=== PATIENT | male | born 1975 | race Caucasian/White ===

== ENCOUNTER 2022-03-11 01:21 | Emergency (ER) | payer OTHER, SELFPAY ==
[2022-03-11] VITALS (15 sets, daily range): BP systolic 128–177; BP diastolic 73–105; PULSE 54–66; RESP 12–22; TEMP 36.9; O2SAT 92–98; BMI 38.7
--- NOTE | 2022-03-11 01:26 | DI.RAD.S_ITS ---
PROCEDURE: XR CHEST 1V INDICATIONS: chest pain TECHNIQUE: One view of the chest was acquired. COMPARISON: None. FINDINGS: Surgical changes and devices: None. Lungs and pleura: Lungs are clear. No pleural effusions or pneumothorax. Mediastinum: Mediastinal contours appear normal. Heart size is normal. Bones and chest wall: No suspicious bony lesions. Overlying soft tissues appear unremarkable. IMPRESSION: Normal for age, source of current chest pain symptoms is not seen. Dictated by: Jaxon Flor M.D. on 03/11/2022 at 1:54 Approved by: Jaxon Flor M.D. on 03/11/2022 at 1:55
--- NOTE | 2022-03-11 01:35 | PC.NURSE ---
pain is described as a pressure, pt states he had a WI about 6-7 yrs ago at that time it was a cool burning sensation in the epigastric area, he did have stents placed. states this feels different
[2022-03-11 01:42] LABS: Add Manual Diff / Slide Review NO; Basophils Absolute Auto 0 /uL (0-100); Basophils Percent Auto 0.4 % (0-2); Eosinophils Absolute Auto 200 /uL (0-450); Eosinophils Percent Auto 2.3 % (2-4); Hematocrit 42.3 % (41-53); Hemoglobin 14.4 g/dL (13.5-17.5); Lymphocytes Absolute Auto 2600 /uL (1100-4500); Lymphocytes Percent Auto 29.3 % (25-40); Mean Corpuscular HGB Conc 34.1 % (30-36); Mean Corpuscular Hemoglobin 32.3 PG (26-34); Mean Corpuscular Volume 94.6 fL (80-100); Monocytes Absolute Auto 1300 /uL (0-900); Monocytes Percent Auto 14.4 % (3-14); Neutrophils Absolute Auto 4800 /uL (1500-7000); Neutrophils Percent Auto 53.6 % (50-75); Platelet Count 163 X10^3/uL (150-400); Red Blood Cell Count 4.47 X10^6/uL (4.5-5.9); Red Cell Distribution Width 13.9 % (11.6-14.8); White Blood Cell Count 8.9 X10^3/uL (4.5-11.0)
--- NOTE | 2022-03-11 01:45 | ED.CHESTPAIN ---
HPI - Chest Pain General Chief Complaint: Chest Pain Stated Complaint: chest pain/45 min Time Seen by Provider: 03/11/22 01:26 Source: patient Mode of arrival: Ambulatory Limitations: no limitations History of Present Illness HPI narrative: 46-year-old male with a history of coronary artery disease. Has had a heart attack in the past with stent placement. Is on lisinopril and metoprolol and atorvastatin. He also takes a daily aspirin. He is not on clopidogrel. He does not see a rn outpatient surgery on a regular basis. He does have a significant family history of coronary artery disease. He is a smoker. He states that this evening he was lying in bed on his left side playing with his phone when he had a sudden onset of chest discomfort. He is currently asymptomatic. The discomfort was all over his chest. He did have some tingling in his left arm. He states that the symptoms today are different than the symptoms that he had when he had a heart attack in the past. He had no shortness of breath. No palpitations. No lightheadedness. Has had diarrhea for the past couple days. No lower extremity swelling. Related Data Home Medications Medication Instructions Recorded Confirmed OMEGA-3 FATTY ACIDS (FISH OIL) #0 09/27/16 aspirin 325 mg tablet 325 mg PO QDAY #0 09/27/16 atorvastatin 80 mg tablet 80 mg PO HS #0 09/27/16 clopidogrel 75 mg tablet 75 mg PO QDAY #0 09/27/16 lisinopril 10 mg tablet 10 mg PO QDAY #0 09/27/16 metoprolol succinate 25 mg #0 09/27/16 tablet,extended release 24 hr (Toprol XL) multivitamin (Multiple Vitamins) 1 tab PO QDAY #0 09/27/16 vitamin B complex (B 1 tab PO QDAY #0 09/27/16 Complex-Vitamin B12) Previous Rx's Medication Instructions Recorded nicotine 14 mg/24 hr daily 14 mg TOPICAL QDAY #42 patch 09/27/16 transdermal patch Allergies Allergy/AdvReac Type Severity Reaction Status Date / Time bupropion [From WELLBUTRIN] Allergy Severe Unverified 01/22/18 12:39 hydrochlorothiazide AdvReac Severe ABD pain Unverified 01/22/18 12:39 [HYDROCHLOROTHIAZIDE] cramps headache Review of Systems Constitutional Constitutional: Reports system reviewed and no additional complaints, except as documented Cardiovascular Cardiovascular: Reports system reviewed and no additional complaints, except as documented Respiratory Respiratory: Reports system reviewed and no additional complaints, except as documented Gastrointestinal Gastrointestinal: Reports system reviewed and no additional complaints, except as documented Musculoskeletal Musculoskeletal: Reports system reviewed and no additional complaints, except as documented Integumentary/Breasts Skin/Breast: Reports system reviewed and no additional complaints, except as documented Neurologic Neurologic: Reports system reviewed and no additional complaints, except as documented Hematologic/Lymphatic On Anticoagulants: No Patient History Medical History Essential hypertension (09/27/16) History of myocardial infarction (09/27/16) Pure hypercholesterolemia (09/27/16) Surgical History (Updated 02/11/18 @ 06:11 by Conversion Provider) Status post hernia repair Family History (Updated 11/06/16 @ 00:00 by Conversion Provider) Father Heart disease Hypertension Hyperlipidemia Grandfather Hypertension Grandmother Hypertension Hyperlipidemia Grandmother Age: 84 Diabetes mellitus Social History Smoking Status: Current every day smoker Smoking Status: Current every day smoker alcohol intake frequency: a few times a week Substance Use Type: does not use Exam Initial Vital Signs Initial Vital Signs: Vital Signs Temperature 98.5 F 03/11/22 01:30 Pulse Rate 66 03/11/22 01:30 Respiratory Rate 18 03/11/22 01:30 Blood Pressure 177/105 H 03/11/22 01:30 Pulse Oximetry 98 03/11/22 01:30 Const General: cooperative, healthy appearing and comfortable HENSD Head: normal to inspection and normocephalic Resp Effort & Inspection: normal respiratory effort Auscultation: clear to auscultation bilaterally Cardio Rate: regular rate Rhythm: regular rhythm GI Inspection: normal to inspection and non-distended Palpation: soft Skin General: no rashes or lesions noted Neuro General: patient alert, patient awake, patient oriented x3 and moves all extremities Extrem General: No edema Psych Appearance: grossly normal and well kempt Scores HEART Score Heart Score history: Slightly Suspicious Heart Score EKG: Normal Heart Score Age: < 45 years old Heart Score risk factors: > 3 risk factors or hx of atherosclerotic disease Heart Score troponin: < or = to normal limit Heart Score Total: 2 Course Orders Ordered: ED Orders 03/11/22 01:26 XR chest 1V Stat 03/11/22 01:27 EKG-12 Lead Stat 03/11/22 01:30 Complete Blood Count AUTO DIFF Stat Comprehensive Metabolic Panel Stat Lipase Stat Troponin & CK Cardiac Panel Stat 03/11/22 03:20 Troponin I Stat 03/11/22 05:18 Troponin I Stat Vital Signs Vital signs: Vital Signs - 8 hr 03/11/22 01:30 03/11/22 01:45 03/11/22 02:00 Temperature 98.5 F Pulse Rate 66 65 63 Respiratory Rate 18 16 17 Blood Pressure 177/105 H Pulse Oximetry 98 97 95 03/11/22 02:01 03/11/22 02:30 03/11/22 02:31 Temperature Pulse Rate 62 63 64 Respiratory Rate 12 22 19 Blood Pressure 160/75 H 141/73 H Pulse Oximetry 95 95 95 03/11/22 03:00 03/11/22 03:01 03/11/22 03:30 Temperature Pulse Rate 62 62 61 Respiratory Rate 19 20 19 Blood Pressure 137/74 133/80 Pulse Oximetry 95 95 94 03/11/22 04:00 03/11/22 04:30 03/11/22 04:31 Temperature Pulse Rate 59 L 60 61 Respiratory Rate Blood Pressure 147/81 H 141/81 H Pulse Oximetry 93 95 96 03/11/22 05:00 03/11/22 05:01 03/11/22 05:30 Temperature Pulse Rate 54 L 54 L 64 Respiratory Rate Blood Pressure 128/75 140/87 Pulse Oximetry 92 94 96 MDM - Chest Pain Lab Data Result diagrams: 03/11/22 01:30 03/11/22 01:30 Labs: Lab Results 03/11/22 03/11/22 03/11/22 Range/Units 01:30 01:30 03:20 WBC 8.9 (4.5-11.0) X10^3/uL RBC 4.47 L (4.5-5.9) X10^6/uL Hgb 14.4 (13.5-17.5) g/dL Hct 42.3 (41-53) % MCV 94.6 (80-100) fL MCH 32.3 (26-34) PG MCHC 34.1 (30-36) % RDW 13.9 (11.6-14.8) % Plt Count 163 (150-400) X10^3/uL Neut % (Auto) 53.6 (50-75) % Lymph % (Auto) 29.3 (25-40) % [place] % (Auto) 14.4 H (3-14) % Eos % (Auto) 2.3 (2-4) % Baso % (Auto) 0.4 (0-2) % Neut # (Auto) 4800 (6401-1682) /uL Lymph # (Auto) 2600 (4083-5949) /uL [place] # (Auto) 1300 H (0-900) /uL Eos # (Auto) 200 (0-450) /uL Baso # (Auto) 0 (0-100) /uL Sodium 141 (137-145) mmol/L Potassium 3.5 (3.4-5.1) mmol/L Chloride 108 H (98-107) mmol/L Carbon Dioxide 27 (22-32) mmol/L BUN 20 (9-20) mg/dL Creatinine 0.92 (0.66-1.25) mg/dL Estimated GFR > 60 (>60) mL/min BUN/Creatinine Ratio 21.7 (6-22) Glucose 125 H (70-100) mg/dL Calcium 8.1 L (8.4-10.2) mg/dL Total Bilirubin 0.4 (0.2-1.3) mg/dL AST 26 (17-59) IU/L ALT 24 (<50) IU/L Alkaline Phosphatase 63 (38-126) U/L Total Creatine Kinase 88 (55-170) U/L CK-MB (CK-2) TNP CK-MB (CK-2) Rel Index TNP Troponin I < 0.012 0.022 (0.01-0.034) ng/mL Total Protein 7.2 (6.3-8.2) g/dL Albumin 3.9 (3.5-5.0) g/dL Globulin 3.3 (1.7-4.1) g/dL Albumin/Globulin Ratio 1.2 (1.0-2.8) Lipase 100 (23-300) U/L // Range/Units 05:18 WBC (4.5-11.0) X10^3/uL RBC (4.5-5.9) X10^6/uL Hgb (13.5-17.5) g/dL Hct (41-53) % MCV (80-100) fL MCH (26-34) PG MCHC (30-36) % RDW (11.6-14.8) % Plt Count (150-400) X10^3/uL Neut % (Auto) (50-75) % Lymph % (Auto) (25-40) % [place] % (Auto) (3-14) % Eos % (Auto) (2-4) % Baso % (Auto) (0-2) % Neut # (Auto) (5141-1855) /uL Lymph # (Auto) (0792-7268) /uL [place] # (Auto) (0-900) /uL Eos # (Auto) (0-450) /uL Baso # (Auto) (0-100) /uL Sodium (137-145) mmol/L Potassium (3.4-5.1) mmol/L Chloride (98-107) mmol/L Carbon Dioxide (22-32) mmol/L BUN (9-20) mg/dL Creatinine (0.66-1.25) mg/dL Estimated GFR (>60) mL/min BUN/Creatinine Ratio (6-22) Glucose (70-100) mg/dL Calcium (8.4-10.2) mg/dL Total Bilirubin (0.2-1.3) mg/dL AST (17-59) IU/L ALT (<50) IU/L Alkaline Phosphatase (38-126) U/L Total Creatine Kinase (55-170) U/L CK-MB (CK-2) CK-MB (CK-2) Rel Index Troponin I 0.027 (0.01-0.034) ng/mL Total Protein (6.3-8.2) g/dL Albumin (3.5-5.0) g/dL Globulin (1.7-4.1) g/dL Albumin/Globulin Ratio (1.0-2.8) Lipase (23-300) U/L Imaging Data Chest x-ray: Radiologist's Impression: [address] [address] XRay Report Signed Patient: Efra Oates MR#: [id number] : 1975 Acct:[id number] Age/Sex: 46 / M Date of Service: 03/11/22 Loc: ED Accession Number: [id number] ?? Procedure: XR chest 1V Ordering Provider: Efra Wheeler D.O. PROCEDURE:? XR CHEST 1V ? INDICATIONS:? chest pain ? TECHNIQUE:? One view of the chest was acquired.? ? COMPARISON:? None. ? FINDINGS:? ? Surgical changes and devices:? None.? ? Lungs and pleura:? Lungs are clear.? No pleural effusions or pneumothorax.? ? Mediastinum:? Mediastinal contours appear normal.? Heart size is normal.? ? Bones and chest wall:? No suspicious bony lesions.? Overlying soft tissues appear unremarkable.? ? IMPRESSION:? Normal for age, source of current chest pain symptoms is not seen. ? ? Dictated by: Jaxon Flor M.D. on 03/11/2022 at 1:54 ? ? Approved by: Jaxon Flor M.D. on 03/11/2022 at 1:55?? ECG Data Attestation: I personally reviewed and interpreted this ECG as follows: Interpretation: Sinus rhythm Ventricular rate is 61 Normal axis normal QRS Normal QTC No ST T wave changes MDM Narrative Medical decision making narrative: Patient had taken aspirin prior to arrival. He has been asymptomatic since arrival here in the ER. Has a unremarkable EKG with no ST changes. Has a low risk heart score. We did discuss admission to the hospital for further risk stratification however the patient opted for serial troponins in the ER. Patient has had 3 negative troponins. Patient does require further risk stratification testing however you contact his primary provider for follow-up. He was given strict return precautions. He expressed understanding and agreement. Discharge Plan Departure Patient Disposition: Home Clinical Impression: Atypical chest pain Instructions: DI for Atypical Chest Pain Activity Restrictions/Additional Instructions: It is important that you contact your primary doctor for further workup to include a stress test. Continue to take all of your medications as directed. Return to the emergency department for any new or worsening symptoms. Prescriptions: No Action atorvastatin 80 MG tablet 80 mg PO HS Qty: 0 0RF lisinopril 10 MG tablet 10 mg PO QDAY Qty: 0 0RF clopidogrel 75 MG tablet 75 mg PO QDAY Qty: 0 0RF metoprolol succinate [Toprol XL] 25 MG tablet extended release 24 hr Qty: 0 0RF multivitamin [Multiple Vitamins] 1 EACH tablet 1 tab PO QDAY Qty: 0 0RF aspirin 325 MG tablet 325 mg PO QDAY Qty: 0 0RF vitamin B complex [B Complex-Vitamin B12] 1 EACH tablet 1 tab PO QDAY Qty: 0 0RF OMEGA-3 FATTY ACIDS (FISH OIL) Qty: 0 0RF nicotine 14 MG patch 24 hour 14 mg Topical QDAY Qty: 42 0RF Referrals: Armani Lewis MD [Primary Care Provider] -
[2022-03-11 01:51] LABS: Alanine Aminotransferase 24 IU/L (<50); Albumin 3.9 g/dL (3.5-5.0); Albumin Globulin Ratio 1.2 (1.0-2.8); Alkaline Phosphatase 63 U/L (38-126); Aspartate Aminotransferase 26 IU/L (17-59); BUN Creatinine Ratio 21.7 (6-22); Bilirubin Total 0.4 mg/dL (0.2-1.3); Blood Urea Nitrogen 20 mg/dL (9-20); Calcium 8.1 mg/dL (8.4-10.2); Carbon Dioxide 27 mmol/L (22-32); Chloride 108 mmol/L (98-107); Creatine Kinase 88 U/L (55-170); Estimated Glomerular Filt Rate > 60 mL/min (>60); Globulin 3.3 g/dL (1.7-4.1); Glucose 125 mg/dL (70-100); HEMOLYSIS 41 (0-50); Lipase 100 U/L (23-300); Potassium 3.5 mmol/L (3.4-5.1); Sodium 141 mmol/L (137-145); Total Protein 7.2 g/dL (6.3-8.2)
[2022-03-11 02:02] LABS: Troponin I < 0.012 ng/mL (0.01-0.034)
[2022-03-11 03:51] LABS: Troponin I 0.022 ng/mL (0.01-0.034)
[2022-03-11 05:46] LABS: Troponin I 0.027 ng/mL (0.01-0.034)
== END 2022-03-11 06:02 | disposition home or self-care (01) ==
PROVIDERS: Emergency Provider Emergency Medicine; PCP Family Medicine
DX: R07.89 Other chest pain (principal); I25.10 Atherosclerotic heart disease of native coronary artery without angina pectoris; Z95.5 Presence of coronary angioplasty implant and graft; I25.2 Old myocardial infarction
CPT/HCPCS: 36415; 71045; 80053; 82550; 83690; 84484; 85025; 93005; 99284

== ENCOUNTER 2022-03-18 23:32 | Emergency (ER) | payer OTHER, SELFPAY ==
[2022-03-18 23:32] VITALS: BP 163/105; PULSE 79; RESP 19; TEMP 36.8; O2SAT 95; BMI 37.6
--- NOTE | 2022-03-18 23:36 | DI.RAD.S_ITS ---
PROCEDURE: XR CHEST 1V INDICATIONS: chest pain TECHNIQUE: One view of the chest was acquired. COMPARISON: [facility], CR, XR CHEST 1V, 03/11/2022, 1:31. FINDINGS: Surgical changes and devices: None. Lungs and pleura: Lungs are clear. No pleural effusions or pneumothorax. Mediastinum: Mediastinal contours appear normal. Heart size is normal. Bones and chest wall: No suspicious bony lesions. Overlying soft tissues appear unremarkable. IMPRESSION: 1. No acute cardiopulmonary disease. Dictated by: Jonathan Gutiérrez M.D. on 03/19/2022 at 0:42 Approved by: Jonathan Gutiérrez M.D. on 03/19/2022 at 0:43
--- NOTE | 2022-03-18 23:46 | ED_ITS ---
HPI - Chest Pain <Jann Dale - Last Filed: 03/20/22 00:22> General Chief Complaint: Chest Pain Stated Complaint: Chest Pain Time Seen by Provider: 03/18/22 23:35 Source: patient and EMS Mode of arrival: EMS History of Present Illness HPI narrative: 46-year-old male daily smoker with history of coronary artery disease, hypertension hyperlipidemia, prior [place] at age 38 with 3 stents placed at [facility] presents with an episode of retrosternal chest pain that happened while at rest 1-2 hours prior to his arrival. He had some radiation across his chest. His symptoms have been present for 10-15 minutes and were absent of any obvious provocation or palliation. EMS was activated and his symptoms resolved prior to their arrival. During transport he had another brief episode that lasted a few minutes. He had some nausea but denies vomiting. He states that he had a similar episode with a normal workup about 1 month ago. He states his last provocative testing was quite sometime ago. He denies any change in medications or diet. He denies any recent travel or injury. He has had no fever or chills. [facility] He took full-dose aspirin prior to his arrival Related Data Home Medications Medication Instructions Recorded Confirmed OMEGA-3 FATTY ACIDS (FISH OIL) #0 09/27/16 aspirin 325 mg tablet 325 mg PO QDAY #0 09/27/16 atorvastatin 80 mg tablet 80 mg PO HS #0 09/27/16 clopidogrel 75 mg tablet 75 mg PO QDAY #0 09/27/16 lisinopril 10 mg tablet 10 mg PO QDAY #0 09/27/16 metoprolol succinate 25 mg #0 09/27/16 tablet,extended release 24 hr (Toprol XL) multivitamin (Multiple Vitamins) 1 tab PO QDAY #0 09/27/16 vitamin B complex (B 1 tab PO QDAY #0 09/27/16 Complex-Vitamin B12) Previous Rx's Medication Instructions Recorded nicotine 14 mg/24 hr daily 14 mg TOPICAL QDAY #42 patch 09/27/16 transdermal patch Allergies Allergy/AdvReac Type Severity Reaction Status Date / Time bupropion [From WELLBUTRIN] Allergy Severe Hypertensio Verified 03/18/22 23:41 n hydrochlorothiazide AdvReac Severe ABD pain Verified 03/18/22 23:41 [HYDROCHLOROTHIAZIDE] cramps headache Review of Systems <Jann Dale DO - Last Filed: 03/20/22 00:22> Review of Systems Narrative: GENERAL: Denies chills, fatigue, malaise, fever, sweats. HEENT: Denies sinus pain, ear pain, sore throat, difficulty swallowing, dizziness. RESPIRATORY: Denies dyspnea, cough, wheezing, hemoptysis, sputum. CARDIOVASCULAR: See HPI GASTROINTESTINAL: Denies nausea, vomiting, abdominal pain, diarrhea, constipation, melena. : Denies dysuria, frequency, incontinence, hematuria, urinary retention. MUSCULOSKELETAL: denies weakness, joint pain, or bony pain SKIN: Denies rash, skin lesions, or other NEUROLOGIC: Denies weakness, headache, numbness, change in speech, confusion, seizures, incoordination. PSYCHIATRIC: No concerning psychosocial issues. 12 point review of systems is negative except for those stated above Patient History <Jann Dale DO - Last Filed: 03/20/22 00:22> Medical History Essential hypertension (09/27/16) History of myocardial infarction (09/27/16) Pure hypercholesterolemia (09/27/16) Surgical History Status post hernia repair Family History Father Heart disease Hypertension Hyperlipidemia Grandfather Hypertension Grandmother Hypertension Hyperlipidemia Grandmother Age: 84 Diabetes mellitus Social History Smoking Status: Current every day smoker Smoking Status: Current every day smoker alcohol intake frequency: a few times a week Substance Use Type: does not use Exam <Jann Dale DO - Last Filed: 03/20/22 00:22> Narrative Exam Narrative: GENERAL: [46] year old patient appears stated age. Well-developed patient, in mild distress. HEAD: Atraumatic. Normocephalic. EYES: Pupils equal round and reactive. Extraocular motions intact. No scleral icterus. No injection or drainage. ENT: Nose without bleeding, purulent drainage. Throat without erythema, tonsillar hypertrophy or exudate. Airway patent. NECK: Trachea midline. Non tender CARDIOVASCULAR: Regular rate and rhythm without murmurs, gallops, or rubs. RESPIRATORY: Clear to auscultation. Breath sounds equal bilaterally. No wheezes, rales, or rhonchi. GASTROINTESTINAL: Abdomen soft, non-tender, nondistended. EXTREMITIES: No edema or joint tenderness. BACK: Nontender without deformity or crepitance. No flank tenderness. NEURO: AOx3. SKIN: No rash or erythema of visible areas Initial Vital Signs Initial Vital Signs: Vital Signs Temperature 98.3 F 03/18/22 23:32 Pulse Rate 79 03/18/22 23:32 Respiratory Rate 19 03/18/22 23:32 Blood Pressure 163/105 H 03/18/22 23:32 Pulse Oximetry 95 03/18/22 23:32 <Marya Solis DO - Last Filed: 03/19/22 12:59> Initial Vital Signs Initial Vital Signs: Vital Signs Temperature 98.3 F 03/18/22 23:32 Pulse Rate 79 03/18/22 23:32 Respiratory Rate 19 03/18/22 23:32 Blood Pressure 163/105 H 03/18/22 23:32 Pulse Oximetry 95 03/18/22 23:32 Course <Jann Dale DO - Last Filed: 03/20/22 00:22> Orders Ordered: Discontinued Medications Aspirin (Aspirin 81 Mg Chew Tab) 324 mg PO NOW ONE Stop: 03/18/22 23:36 Last Admin: 03/18/22 23:45 Dose: Not Given Documented by: JEANNINE Atorvastatin Calcium (Atorvastatin 20 Mg Tablet) 80 mg PO NOW ONE Stop: 03/19/22 04:18 Last Admin: 03/19/22 04:31 Dose: 80 mg Documented by: AMANDA Heparin Sodium (Porcine) (Heparin 5,000 Unit/Ml Vial) 5,000 unit IV NOW ONE Stop: 03/19/22 03:19 Last Admin: 03/19/22 03:52 Dose: 5,000 unit Documented by: AMANDA Sodium Chloride (Normal Saline 0.9%) 1,000 mls @ 150 mls/hr IV CONT MARCOS Last Infusion: 03/19/22 04:10 Dose: 0 mls/hr Documented by: Infusion: 03/19/22 04:02 Dose: 0 mls/hr Documented by: Admin: 03/19/22 01:01 Dose: 150 mls/hr Documented by: JEANNINE Heparin Sodium/Dextrose (Heparin Drip) 25,000 unit in 500 mls @ 20 mls/hr IV CONT MARCOS; Protocol Last Titration: 03/19/22 13:38 Dose: 0 units/hr, 0 mls/hr Documented by: Admin: 03/19/22 03:52 Dose: 1,000 units/hr, 20 mls/hr Documented by: AMANDA Metoprolol Succinate (Metoprolol Er 50 Mg Tablet) 50 mg PO NOW ONE Stop: 03/19/22 04:18 Last Admin: 03/19/22 04:31 Dose: 50 mg Documented by: AMANDA Vital Signs Vital signs: Vital Signs - 8 hr 03/19/22 05:00 03/19/22 05:01 03/19/22 05:30 Pulse Rate 65 63 59 L Respiratory Rate 15 16 13 Blood Pressure 120/73 129/76 Pulse Oximetry 96 97 97 03/19/22 06:00 03/19/22 06:30 03/19/22 07:00 Pulse Rate 55 L 55 L 61 Respiratory Rate 14 15 16 Blood Pressure 136/66 132/75 120/77 Pulse Oximetry 96 97 96 03/19/22 09:30 03/19/22 10:10 Pulse Rate 58 L 55 L Respiratory Rate 14 15 Blood Pressure 129/72 119/69 Pulse Oximetry 94 95 <Marya Solis, - Last Filed: 03/19/22 12:59> Orders Ordered: Discontinued Medications Aspirin (Aspirin 81 Mg Chew Tab) 324 mg PO NOW ONE Stop: 03/18/22 23:36 Last Admin: 03/18/22 23:45 Dose: Not Given Documented by: JEANNINE Atorvastatin Calcium (Atorvastatin 20 Mg Tablet) 80 mg PO NOW ONE Stop: 03/19/22 04:18 Last Admin: 03/19/22 04:31 Dose: 80 mg Documented by: AMANDA Heparin Sodium (Porcine) (Heparin 5,000 Unit/Ml Vial) 5,000 unit IV NOW ONE Stop: 03/19/22 03:19 Last Admin: 03/19/22 03:52 Dose: 5,000 unit Documented by: AMANDA Sodium Chloride (Normal Saline 0.9%) 1,000 mls @ 150 mls/hr IV CONT MARCOS Last Infusion: 03/19/22 04:10 Dose: 0 mls/hr Documented by: Infusion: 03/19/22 04:02 Dose: 0 mls/hr Documented by: Admin: 03/19/22 01:01 Dose: 150 mls/hr Documented by: JEANNINE Heparin Sodium/Dextrose (Heparin Drip) 25,000 unit in 500 mls @ 20 mls/hr IV CONT MARCOS; Protocol Last Titration: 03/19/22 13:38 Dose: 0 units/hr, 0 mls/hr Documented by: Admin: 03/19/22 03:52 Dose: 1,000 units/hr, 20 mls/hr Documented by: AMANDA Metoprolol Succinate (Metoprolol Er 50 Mg Tablet) 50 mg PO NOW ONE Stop: 03/19/22 04:18 Last Admin: 03/19/22 04:31 Dose: 50 mg Documented by: AMANDA Consultations Consultation #1: Dr. Campuzano, cardiology accepts for catheterization but asked for hospitalist to be the admitting service. Agrees with plan for transfer and current treatment. Consultation #2: Dr. Frausto, hospitalist accepts for transfer. Discussed no acute ST changes. Chest pain-free, troponin peaked at 0.399 it is trending down words. Had aspirin with EMS, heparin drip, statin beta-helga, no nitro drip as chest pain free. Time: 12:13 Vital Signs Vital signs: Vital Signs - 8 hr 03/19/22 05:00 03/19/22 05:01 03/19/22 05:30 Pulse Rate 65 63 59 L Respiratory Rate 15 16 13 Blood Pressure 120/73 129/76 Pulse Oximetry 96 97 97 03/19/22 06:00 03/19/22 06:30 03/19/22 07:00 Pulse Rate 55 L 55 L 61 Respiratory Rate 14 15 16 Blood Pressure 136/66 132/75 120/77 Pulse Oximetry 96 97 96 03/19/22 09:30 03/19/22 10:10 Pulse Rate 58 L 55 L Respiratory Rate 14 15 Blood Pressure 129/72 119/69 Pulse Oximetry 94 95 MDM - Chest Pain <Jann Dale DO - Last Filed: 06/07/22 00:22> Lab Data Result diagrams: 03/18/22 23:37 03/18/22 23:37 Labs: Lab Results 03/18/22 03/18/22 03/18/22 Range/Units 23:37 23:37 23:37 WBC 9.2 (4.5-11.0) X10^3/uL RBC 4.92 (4.5-5.9) X10^6/uL Hgb 16.0 (13.5-17.5) g/dL Hct 45.7 (41-53) % MCV 92.9 (80-100) fL MCH 32.5 (26-34) PG MCHC 35.0 (30-36) % RDW 13.8 (11.6-14.8) % Plt Count 187 (150-400) X10^3/uL Neut % (Auto) 63.3 (50-75) % Lymph % (Auto) 25.8 (25-40) % [place] % (Auto) 7.6 (3-14) % Eos % (Auto) 2.7 (2-4) % Baso % (Auto) 0.6 (0-2) % Neut # (Auto) 5800 (5046-2905) /uL Lymph # (Auto) 2400 (6446-4064) /uL [place] # (Auto) 700 (0-900) /uL Eos # (Auto) 200 (0-450) /uL Baso # (Auto) 100 (0-100) /uL APTT (26.4-36.2) SECONDS D-Dimer < 200 (<230) ng/mL Sodium (137-145) mmol/L Potassium (3.4-5.1) mmol/L Chloride (98-107) mmol/L Carbon Dioxide (22-32) mmol/L BUN (9-20) mg/dL Creatinine (0.66-1.25) mg/dL Estimated GFR (>60) mL/min BUN/Creatinine Ratio (6-22) Glucose (70-100) mg/dL Calcium (8.4-10.2) mg/dL Total Bilirubin (0.2-1.3) mg/dL AST (17-59) IU/L ALT (<50) IU/L Alkaline Phosphatase (38-126) U/L Total Creatine Kinase (55-170) U/L CK-MB (CK-2) (<2.37) ng/mL CK-MB (CK-2) Rel Index (1.5-5.0) % Troponin I (0.01-0.034) ng/mL NT-Pro-B Natriuret Pep 24 (<125) pg/mL Total Protein (6.3-8.2) g/dL Albumin (3.5-5.0) g/dL Globulin (1.7-4.1) g/dL Albumin/Globulin Ratio (1.0-2.8) Lipase (23-300) U/L SARS-CoV-2 (PCR) (Negative) 03/18/22 03/19/22 03/19/22 Range/Units 23:37 02:35 09:23 WBC (4.5-11.0) X10^3/uL RBC (4.5-5.9) X10^6/uL Hgb (13.5-17.5) g/dL Hct (41-53) % MCV (80-100) fL MCH (26-34) PG MCHC (30-36) % RDW (11.6-14.8) % Plt Count (150-400) X10^3/uL Neut % (Auto) (50-75) % Lymph % (Auto) (25-40) % [place] % (Auto) (3-14) % Eos % (Auto) (2-4) % Baso % (Auto) (0-2) % Neut # (Auto) (6373-5100) /uL Lymph # (Auto) (4366-3819) /uL [place] # (Auto) (0-900) /uL Eos # (Auto) (0-450) /uL Baso # (Auto) (0-100) /uL APTT 70 H (26.4-36.2) SECONDS D-Dimer (<230) ng/mL Sodium 138 (137-145) mmol/L Potassium 4.2 (3.4-5.1) mmol/L Chloride 104 (98-107) mmol/L Carbon Dioxide 26 (22-32) mmol/L BUN 20 (9-20) mg/dL Creatinine 1.06 (0.66-1.25) mg/dL Estimated GFR > 60 (>60) mL/min BUN/Creatinine Ratio 18.9 (6-22) Glucose 172 H (70-100) mg/dL Calcium 9.1 (8.4-10.2) mg/dL Total Bilirubin 0.3 (0.2-1.3) mg/dL AST 26 (17-59) IU/L ALT 27 (<50) IU/L Alkaline Phosphatase 77 (38-126) U/L Total Creatine Kinase 113 100 (55-170) U/L CK-MB (CK-2) 1.27 TNP (<2.37) ng/mL CK-MB (CK-2) Rel Index 1.1 L TNP (1.5-5.0) % Troponin I 0.044 H 0.399 H* (0.01-0.034) ng/mL NT-Pro-B Natriuret Pep (<125) pg/mL Total Protein 7.4 (6.3-8.2) g/dL Albumin 4.3 (3.5-5.0) g/dL Globulin 3.1 (1.7-4.1) g/dL Albumin/Globulin Ratio 1.4 (1.0-2.8) Lipase 121 (23-300) U/L SARS-CoV-2 (PCR) (Negative) 03/19/22 03/19/22 Range/Units 11:07 11:22 WBC (4.5-11.0) X10^3/uL RBC (4.5-5.9) X10^6/uL Hgb (13.5-17.5) g/dL Hct (41-53) % MCV (80-100) fL MCH (26-34) PG MCHC (30-36) % RDW (11.6-14.8) % Plt Count (150-400) X10^3/uL Neut % (Auto) (50-75) % Lymph % (Auto) (25-40) % [place] % (Auto) (3-14) % Eos % (Auto) (2-4) % Baso % (Auto) (0-2) % Neut # (Auto) (1540-0943) /uL Lymph # (Auto) (3326-4271) /uL [place] # (Auto) (0-900) /uL Eos # (Auto) (0-450) /uL Baso # (Auto) (0-100) /uL APTT (26.4-36.2) SECONDS D-Dimer (<230) ng/mL Sodium (137-145) mmol/L Potassium (3.4-5.1) mmol/L Chloride (98-107) mmol/L Carbon Dioxide (22-32) mmol/L BUN (9-20) mg/dL Creatinine (0.66-1.25) mg/dL Estimated GFR (>60) mL/min BUN/Creatinine Ratio (6-22) Glucose (70-100) mg/dL Calcium (8.4-10.2) mg/dL Total Bilirubin (0.2-1.3) mg/dL AST (17-59) IU/L ALT (<50) IU/L Alkaline Phosphatase (38-126) U/L Total Creatine Kinase (55-170) U/L CK-MB (CK-2) (<2.37) ng/mL CK-MB (CK-2) Rel Index (1.5-5.0) % Troponin I 0.381 H* (0.01-0.034) ng/mL NT-Pro-B Natriuret Pep (<125) pg/mL Total Protein (6.3-8.2) g/dL Albumin (3.5-5.0) g/dL Globulin (1.7-4.1) g/dL Albumin/Globulin Ratio (1.0-2.8) Lipase (23-300) U/L SARS-CoV-2 (PCR) Negative (Negative) ECG Data Interpretation: EKG is normal sinus rhythm rate [77 ] and free of any signs of ischemia or ectopy. No ST segmental elevation or depression. No T wave inversions EKG 2. No significant change 0521 - calls wait list at [facility] and [facility]. [facility] requests call back after discharges. , [facility] have no beds. [facility] <Marya Solis DO - Last Filed: 03/19/22 12:59> Lab Data Labs: Lab Results 03/18/22 03/18/22 03/18/22 Range/Units 23:37 23:37 23:37 WBC 9.2 (4.5-11.0) X10^3/uL RBC 4.92 (4.5-5.9) X10^6/uL Hgb 16.0 (13.5-17.5) g/dL Hct 45.7 (41-53) % MCV 92.9 (80-100) fL MCH 32.5 (26-34) PG MCHC 35.0 (30-36) % RDW 13.8 (11.6-14.8) % Plt Count 187 (150-400) X10^3/uL Neut % (Auto) 63.3 (50-75) % Lymph % (Auto) 25.8 (25-40) % [place] % (Auto) 7.6 (3-14) % Eos % (Auto) 2.7 (2-4) % Baso % (Auto) 0.6 (0-2) % Neut # (Auto) 5800 (2162-1912) /uL Lymph # (Auto) 2400 (1212-9009) /uL [place] # (Auto) 700 (0-900) /uL Eos # (Auto) 200 (0-450) /uL Baso # (Auto) 100 (0-100) /uL APTT (26.4-36.2) SECONDS D-Dimer < 200 (<230) ng/mL Sodium (137-145) mmol/L Potassium (3.4-5.1) mmol/L Chloride (98-107) mmol/L Carbon Dioxide (22-32) mmol/L BUN (9-20) mg/dL Creatinine (0.66-1.25) mg/dL Estimated GFR (>60) mL/min BUN/Creatinine Ratio (6-22) Glucose (70-100) mg/dL Calcium (8.4-10.2) mg/dL Total Bilirubin (0.2-1.3) mg/dL AST (17-59) IU/L ALT (<50) IU/L Alkaline Phosphatase (38-126) U/L Total Creatine Kinase (55-170) U/L CK-MB (CK-2) (<2.37) ng/mL CK-MB (CK-2) Rel Index (1.5-5.0) % Troponin I (0.01-0.034) ng/mL NT-Pro-B Natriuret Pep 24 (<125) pg/mL Total Protein (6.3-8.2) g/dL Albumin (3.5-5.0) g/dL Globulin (1.7-4.1) g/dL Albumin/Globulin Ratio (1.0-2.8) Lipase (23-300) U/L SARS-CoV-2 (PCR) (Negative) 03/18/22 03/19/22 03/19/22 Range/Units 23:37 02:35 09:23 WBC (4.5-11.0) X10^3/uL RBC (4.5-5.9) X10^6/uL Hgb (13.5-17.5) g/dL Hct (41-53) % MCV (80-100) fL MCH (26-34) PG MCHC (30-36) % RDW (11.6-14.8) % Plt Count (150-400) X10^3/uL Neut % (Auto) (50-75) % Lymph % (Auto) (25-40) % [place] % (Auto) (3-14) % Eos % (Auto) (2-4) % Baso % (Auto) (0-2) % Neut # (Auto) (7234-7367) /uL Lymph # (Auto) (4324-7348) /uL [place] # (Auto) (0-900) /uL Eos # (Auto) (0-450) /uL Baso # (Auto) (0-100) /uL APTT 70 H (26.4-36.2) SECONDS D-Dimer (<230) ng/mL Sodium 138 (137-145) mmol/L Potassium 4.2 (3.4-5.1) mmol/L Chloride 104 (98-107) mmol/L Carbon Dioxide 26 (22-32) mmol/L BUN 20 (9-20) mg/dL Creatinine 1.06 (0.66-1.25) mg/dL Estimated GFR > 60 (>60) mL/min BUN/Creatinine Ratio 18.9 (6-22) Glucose 172 H (70-100) mg/dL Calcium 9.1 (8.4-10.2) mg/dL Total Bilirubin 0.3 (0.2-1.3) mg/dL AST 26 (17-59) IU/L ALT 27 (<50) IU/L Alkaline Phosphatase 77 (38-126) U/L Total Creatine Kinase 113 100 (55-170) U/L CK-MB (CK-2) 1.27 TNP (<2.37) ng/mL CK-MB (CK-2) Rel Index 1.1 L TNP (1.5-5.0) % Troponin I 0.044 H 0.399 H* (0.01-0.034) ng/mL NT-Pro-B Natriuret Pep (<125) pg/mL Total Protein 7.4 (6.3-8.2) g/dL Albumin 4.3 (3.5-5.0) g/dL Globulin 3.1 (1.7-4.1) g/dL Albumin/Globulin Ratio 1.4 (1.0-2.8) Lipase 121 (23-300) U/L SARS-CoV-2 (PCR) (Negative) 03/19/22 03/19/22 Range/Units 11:07 11:22 WBC (4.5-11.0) X10^3/uL RBC (4.5-5.9) X10^6/uL Hgb (13.5-17.5) g/dL Hct (41-53) % MCV (80-100) fL MCH (26-34) PG MCHC (30-36) % RDW (11.6-14.8) % Plt Count (150-400) X10^3/uL Neut % (Auto) (50-75) % Lymph % (Auto) (25-40) % [place] % (Auto) (3-14) % Eos % (Auto) (2-4) % Baso % (Auto) (0-2) % Neut # (Auto) (0596-5781) /uL Lymph # (Auto) (2977-0963) /uL [place] # (Auto) (0-900) /uL Eos # (Auto) (0-450) /uL Baso # (Auto) (0-100) /uL APTT (26.4-36.2) SECONDS D-Dimer (<230) ng/mL Sodium (137-145) mmol/L Potassium (3.4-5.1) mmol/L Chloride (98-107) mmol/L Carbon Dioxide (22-32) mmol/L BUN (9-20) mg/dL Creatinine (0.66-1.25) mg/dL Estimated GFR (>60) mL/min BUN/Creatinine Ratio (6-22) Glucose (70-100) mg/dL Calcium (8.4-10.2) mg/dL Total Bilirubin (0.2-1.3) mg/dL AST (17-59) IU/L ALT (<50) IU/L Alkaline Phosphatase (38-126) U/L Total Creatine Kinase (55-170) U/L CK-MB (CK-2) (<2.37) ng/mL CK-MB (CK-2) Rel Index (1.5-5.0) % Troponin I 0.381 H* (0.01-0.034) ng/mL NT-Pro-B Natriuret Pep (<125) pg/mL Total Protein (6.3-8.2) g/dL Albumin (3.5-5.0) g/dL Globulin (1.7-4.1) g/dL Albumin/Globulin Ratio (1.0-2.8) Lipase (23-300) U/L SARS-CoV-2 (PCR) Negative (Negative) Imaging Data Chest x-ray: Radiologist's Impression: Efra Oates??46??M??1975 ? Allergy/Adv: bupropion, hydrochlorothiazide (More??) Close Chest X-Ray (Signed) Gutiérrez,Jonathan - 03/18/22 Chest X-Ray (Signed) Jaxon Flor - 03/11/22 Launch?[address] [address] XRay Report Signed Patient: Efra Oates MR#: [id number] : 1975 Acct:[id number] Age/Sex: 46 / M Date of Service: 03/18/22 Loc: ED Accession Number: [id number] ?? Procedure: XR chest 1V Ordering Provider: Jann Dale D.O. PROCEDURE:? XR CHEST 1V ? INDICATIONS:? chest pain ? TECHNIQUE:? One view of the chest was acquired.? ? COMPARISON:? [facility], CR, XR CHEST 1V, 03/11/2022, 1:31. ? FINDINGS:? ? Surgical changes and devices:? None.? ? Lungs and pleura:? Lungs are clear.? No pleural effusions or pneumothorax.? ? Mediastinum:? Mediastinal contours appear normal.? Heart size is normal.? ? Bones and chest wall:? No suspicious bony lesions.? Overlying soft tissues appear unremarkable.? ? IMPRESSION:? ? 1.? No acute cardiopulmonary disease. ? ? Dictated by: Jonathan Gutiérrez M.D. on 03/19/2022 at 0:42 ? ? Approved by: Jonathan Gutiérrez M.D. on 03/19/2022 at 0:43 MDM Narrative Medical decision making narrative: 03/19/22 Mank: Patient signed out to myself by Dr. Dale, while awaiting [facility] hospital bed. There is no beds regionally and is on the [facility] regional hotline list. Patient was seen did independently evaluated by myself. Is a 46-year-old male with known cardiac history with 3 prior cardiac stents at age 38 with retrosternal chest pain and NSTEMI. Patient does not have any acute EKG changes, EKGs reviewed independently by myself. Initial troponin was indeterminate and repeat troponin peaked at 0.39 and is starting to trend down words at 11:30 a.m. this morning although only slightly. Patient had aspirin via EMS in the field is on heparin drip, no acute chest pain on recheck and has been asymptomatic in the department this morning. CBC, CMP show no acute changes in terms of renal function, anemia. Patient also received statin beta- helga. I spoke with Dr. Shah from Cardiology at [facility] who feels patient is very appropriate for transfer and Dr. Frausto the hospitalist who accepts for transfer to [facility]. Discharge Plan Departure Patient Disposition: [facility] Clinical Impression: Non-ST elevation [place] (NSTEMI) Prescriptions: No Action atorvastatin 80 MG tablet 80 mg PO HS Qty: 0 0RF lisinopril 10 MG tablet 10 mg PO QDAY Qty: 0 0RF clopidogrel 75 MG tablet 75 mg PO QDAY Qty: 0 0RF metoprolol succinate [Toprol XL] 25 MG tablet extended release 24 hr Qty: 0 0RF multivitamin [Multiple Vitamins] 1 EACH tablet 1 tab PO QDAY Qty: 0 0RF aspirin 325 MG tablet 325 mg PO QDAY Qty: 0 0RF vitamin B complex [B Complex-Vitamin B12] 1 EACH tablet 1 tab PO QDAY Qty: 0 0RF OMEGA-3 FATTY ACIDS (FISH OIL) Qty: 0 0RF nicotine 14 MG patch 24 hour 14 mg Topical QDAY Qty: 42 0RF Referrals: Armani Lewis MD [Primary Care Provider] -
[2022-03-18 23:49] LABS: Add Manual Diff / Slide Review NO; Basophils Absolute Auto 100 /uL (0-100); Basophils Percent Auto 0.6 % (0-2); Eosinophils Absolute Auto 200 /uL (0-450); Eosinophils Percent Auto 2.7 % (2-4); Hematocrit 45.7 % (41-53); Lymphocytes Absolute Auto 2400 /uL (1100-4500); Lymphocytes Percent Auto 25.8 % (25-40); Mean Corpuscular Hemoglobin 32.5 PG (26-34); Mean Corpuscular Volume 92.9 fL (80-100); Monocytes Absolute Auto 700 /uL (0-900); Monocytes Percent Auto 7.6 % (3-14); Neutrophils Absolute Auto 5800 /uL (1500-7000); Neutrophils Percent Auto 63.3 % (50-75); Platelet Count 187 X10^3/uL (150-400); Red Blood Cell Count 4.92 X10^6/uL (4.5-5.9); Red Cell Distribution Width 13.8 % (11.6-14.8); White Blood Cell Count 9.2 X10^3/uL (4.5-11.0)
[2022-03-18 23:59] LABS: Alanine Aminotransferase 27 IU/L (<50); Albumin 4.3 g/dL (3.5-5.0); Albumin Globulin Ratio 1.4 (1.0-2.8); Alkaline Phosphatase 77 U/L (38-126); Aspartate Aminotransferase 26 IU/L (17-59); BUN Creatinine Ratio 18.9 (6-22); Bilirubin Total 0.3 mg/dL (0.2-1.3); Blood Urea Nitrogen 20 mg/dL (9-20); Calcium 9.1 mg/dL (8.4-10.2); Carbon Dioxide 26 mmol/L (22-32); Chloride 104 mmol/L (98-107); Creatine Kinase 113 U/L (55-170); Estimated Glomerular Filt Rate > 60 mL/min (>60); Globulin 3.1 g/dL (1.7-4.1); Glucose 172 mg/dL (70-100); HEMOLYSIS 32 (0-50); Lipase 121 U/L (23-300); Potassium 4.2 mmol/L (3.4-5.1); Sodium 138 mmol/L (137-145); Total Protein 7.4 g/dL (6.3-8.2)
[2022-03-19] VITALS (20 sets, daily range): BP systolic 116–136; BP diastolic 62–81; PULSE 53–73; RESP 13–18; O2SAT 94–97
[2022-03-19 00:06] LABS: D Dimer < 200 ng/mL (<230)
[2022-03-19 00:08] LABS: NT-proBNP (BNP-Adult 18+) 24 pg/mL (<125)
[2022-03-19 00:11] LABS: Troponin I 0.044 ng/mL (0.01-0.034)
[2022-03-19 00:14] LABS: CKMB % Relative Index 1.1 % (1.5-5.0); Creatine Kinase MB 1.27 ng/mL (<2.37)
[2022-03-19] MEDS: SODIUM CHLORIDE 0.9% 1,000 ML 150 ML IV (01:01)
[2022-03-19 02:59] LABS: Creatine Kinase 100 U/L (55-170)
[2022-03-19 03:14] LABS: Troponin I 0.399 ng/mL (0.01-0.034)
[2022-03-19] MEDS: HEPARIN 5,000 UNIT/ML VIAL 5000 UNIT IV (03:52)
[2022-03-19] MEDS: HEPARIN DRIP 25,000 UNIT/500 ML IV.SOLN 20 UNIT IV (03:52)
[2022-03-19] MEDS: METOPROLOL ER 50 MG TABLET PO (04:31)
[2022-03-19] MEDS: ATORVASTATIN 20 MG TABLET 80 MG PO (04:31)
--- NOTE | 2022-03-19 05:51 | PC.NURSE ---
Pt in need of higher level of care for N-Stemi I have called -[facility] and spoke with Lily they have 0 beds -[facility] and spoke with shira They have 0 beds placed on waitlist -[facility] and spoke with Maria Del Carmen they have 0 beds [facility] - [facility] and [facility] will start working on trying to find a bed
--- NOTE | 2022-03-19 07:31 | PC.NURSE ---
pt moved to room 12 and placed on a hospital bed for comfort, no c/o c/p at this time
[2022-03-19 09:44] LABS: PTT Partial Thromboplastin Tim 70 SECONDS (26.4-36.2)
[2022-03-19 11:55] LABS: Troponin I 0.381 ng/mL (0.01-0.034)
--- NOTE | 2022-03-19 12:03 | PC.NURSE ---
Checked on pt with SANDRA Rivers. He denies SOB, chest pain, and headache. Heparin drip running at 1000 units/hr or 20 mls/hr per protocol. Checked heparin drip with SANDRA Rivers. Pt is resting in bed. States he will call if any changes or has any needs. Call light within reach.
[2022-03-19 12:06] LABS: COVID19 -Nasal RAPID Negative (Negative)
--- NOTE | 2022-03-19 13:36 | PC.NURSE ---
Addendum entered by Lorena Mae R.N. 03/19/22 13:39: 1339- Heparin drip continued with [facility]. Original Note: Transport at bedside. Report given to SANDRA Linares.
== END 2022-03-19 13:42 | disposition short-term general hospital (02) ==
PROVIDERS: Emergency Medicine; Emergency Provider Emergency Medicine; PCP Family Medicine
DX: I21.4 Non-ST elevation (NSTEMI) myocardial infarction (principal); Z20.822 Contact with and (suspected) exposure to COVID-19
CPT/HCPCS: 36415; 71045; 80053; 82550; 82553; 83690; 83880; 84484; 85025; 85379; 85730; 87635; 93005; 93010; 96365; 96366; 96375; 99284; C9803; J1644

== ENCOUNTER → 2022-08-15 09:02 | Outpatient (CLI) | payer OTHER, SELFPAY ==
[2022-08-15 09:53] LABS: Influenza A - CEPHEID Flu A NEGATIVE (NEGATIVE); Influenza B - CEPHEID Flu B NEGATIVE (NEGATIVE); Respiratory Syncytial Virus Negative (Negative)
[2022-08-15 09:54] LABS: COVID-19 CEPHEID 4-PLEX PCR Negative (Negative)
== END ==
PROVIDERS: PCP Family Medicine; Visit Provider Nurse Practitioner Family
DX: J02.9 Acute pharyngitis, unspecified (principal); R51.9 Headache, unspecified
CPT/HCPCS: 0241U; 87070